=== PATIENT | female | born 1980 | race Caucasian/White ===

== ENCOUNTER 2019-06-19 20:22 | Inpatient (IN) | payer MEDICARE, OTHER ==
[~2019-06-19] VITALS: Ht 167.6 cm; Wt 103.9 kg
[~2019-06-19 20:22] MED LIST: COGENTIN1 MG/1 ML PO; DEPAKOTE500 MG PO; RISPERDAL1 MG PO
--- OUTSIDE RECORDS SUMMARY | 2019-06-19 20:25 | XMS REPORT | Encounter Summary ---
Author Author EMILY Pritchard, [place] Organization [facility] Address [address] [place] [id number] Phone Care Team Providers Care Management Accounts Manager Name Role Phone VICTOR MANUEL Vizcaino, Marianela Beckett [facility] [phone] Conditions or Problems No information available. Medications Medication Instructions Start Date Stop Date Generic Name ND Provider PROAIR HFA AERS take 2 puffs by mouth BID asthma for 60 days non kop ALBUTEROL SULFATE AERS [id number] Marianela Vizcaino NP Medications Administered No information available. Allergies, Adverse Reactions, Alerts No information available.
--- OUTSIDE RECORDS SUMMARY | 2019-06-19 20:25 | XMS REPORT | Encounter Summary ---
Author Author Kieran Whitfield [place] Shoaib Organization [facility] Address [address] [place] [phone] Phone Care Team Providers Care Ekg Monitor Name Role Phone VICTOR AMNUEL Vizcaino, Marianela Beckett [facility] [phone] Conditions or Problems No information available. Medications Medication Instructions Start Date Stop Date Generic Name [facility] Provider PROAIR HFA AERS take 2 puffs by mouth BID asthma for 60 days non kop ALBUTEROL SULFATE AERS [id number] Marianela Vizcaino NP Medications Administered No information available. Allergies, Adverse Reactions, Alerts No information available.
--- OUTSIDE RECORDS SUMMARY | 2019-06-19 20:25 | XMS REPORT | Encounter Summary ---
Author Author Gabriel, [email or web address] Organization [facility] Address [address] [place] [address] Phone Care Team Providers Care Cleaner Carpet And Upholstery Name Role Phone VICTOR MANUEL Vizcaino, Marianela Beckett [facility] [phone] Conditions or Problems No information available. Medications Medication Instructions Start Date Stop Date Generic Name NDC Provider PROAIR HFA AERS take 2 puffs by mouth BID asthma for 60 days non kop ALBUTEROL SULFATE AERS [phone] Marianela Vizcaino NP Medications Administered No information available. Allergies, Adverse Reactions, Alerts No information available.
--- OUTSIDE RECORDS SUMMARY | 2019-06-19 20:25 | XMS REPORT | Encounter Summary ---
Author Author EMILY To, [facility] Address [address] [place] [phone] Phone Care Team Providers Care Job Training Supervisor Name Role Phone VLADISLAV Mcdaniel, Alcira Guerra Unavailable Conditions or Problems No information available. Medications Medication Instructions Start Date Stop Date Generic Name [facility] Provider VENTOLIN HFA 108 (90 Base) MCG/ACT AERS Inhale 2 puffs by mouth twice daily x 60 days. NON KOP ( 8 gm) ALBUTEROL SULFATE [id number] VLADISLAV Epstein Medications Administered No information available. Allergies, Adverse Reactions, Alerts No information available.
--- OUTSIDE RECORDS SUMMARY | 2019-06-19 20:25 | XMS REPORT ---
Author Author [facility] Address Unknown Phone Unavailable Care Team Providers Care Inside Tester Name Role Phone UNKNOWN, REFFERING PP Unavailable Cesia OLVERA Unavailable Unavailable Problems This patient has no known problems. Allergies, Adverse Reactions, Alerts This patient has no known allergies or adverse reactions. Medications This patient has no known medications. Encounters Start Date/Time End Date/Time Encounter Type Admission Type Attending [facility] Care Department Encounter ID [id number] 00:00:00 2018-01-17 00:00:00 Outpatient [facility] [id number] 2018-01-01 10:44:59 2018-01-01 10:44:59 Outpatient [facility] [id number] 2016-11-16 00:00:00 2017-03-01 00:00:00 Outpatient [facility] [id number] 2016-11-16 00:00:00 2016-11-16 00:00:00 Outpatient [facility] [id number] 2016-10-28 20:13:00 2016-10-28 20:13:00 Emergency E [facility] [id number] 2016-10-05 00:01:00 2016-10-05 00:01:00 Outpatient C [facility] [id number] 2016-09-27 11:20:00 2016-09-27 11:20:00 Outpatient C [facility] [id number] 2016-09-05 22:11:00 2016-09-05 22:11:00 Emergency [facility] [id number] Results Test Description Test Time Test Comments Text Results Atomic Results Result Comments Complete Blood Count with Differential 2018-11-27 08:11:59 WBC (test code=WBC) 4.0 x10 4.4-10.5 RBC (test code=RBC) 4.58 x10 3.75-5.20 Hgb (test code=Hgb) 13.6 g/dL 12.2-14.8 MCV (test code=MCV) 91.50 fL 80.00-100.00 Hct (test code=Hct) 41.9 % 36.5-44.4 MCHC (test code=MCHC) 32.50 g/dL 32.00-37.50 RDW CV (test code=RDW CV) 12.2 % 11.5-14.5 MCH (test code=MCH) 29.7 pg 27.0-32.5 Platelets (test code=Platelets) 399.0 x10 140.0-440.0 MPV (test code=MPV) 8.6 fL Slide Review (test code=Slide Review) Auto Auto Result created by GL_SJM_SLIDE_REV_AUTO nRBC (test code=nRBC) 0 NRBC Abs (test code=NRBC Abs) 0.00 x10 IPF (test code=IPF) 0 % Automated [id number] 08:11:59* Test Item Value Reference Range Comments Neutro Auto (test code=Neutro Auto) 48.3 % 36.0-70.0 Lymph Auto (test code=Lymph Auto) 31.6 % 12.0-44.0 [place] Auto (test code=[place] Auto) 12.2 % 0.0-11.0 Eos, Auto (test code=Eos, Auto) 7.1 % 0.0-7.0 Basophil Auto (test code=Basophil Auto) 0.5 % 0.0-2.0 Neutro Absolute (test code=Neutro Absolute) 1.9 x10 1.6-7.4 Lymph Absolute (test code=Lymph Absolute) 1.25 x10 .50-4.60 [place] Absolute (test code=[place] Absolute) .48 x10 .00-1.20 Eos Absolute (test code=Eos Absolute) 0.28 x10 0.00-0.74 Baso Absolute (test code=Baso Absolute) 0.02 x10 0.00-0.21 IG [id number] 08:11:59* Test Item Value Reference Range Comments IG (test code=IG) 0.3 % 0.0-5.0 IG Abs (test code=IG Abs) 0 x10 Clozapine (Clozaril), Serum [id number] 07:14:43* Test Item Value Reference Range Comments Clozapine, Serum (test code=Clozapine, Serum) 260 ng/mL 350-650 This test was developed and its performance characteristicsdetermined by [facility]. It has not been cleared orapproved by the Food and Drug Administration. Norclozapine, Serum (test code=Norclozapine, Serum) 109 ng/mL Not Estab. This test was developed and its performance characteristicsdetermined by [facility]. It has not been cleared orapproved by the Food and Drug Administration. Total(Cloz+Norcloz) (test code=Total(Cloz+Norcloz)) 369 ng/mL Patients dosed with 400 mg clozapine daily for 4 weeks weremost likely to exhibit a therapeutic effect when the sum ofclozapine and norclozapine concentrations were at least 450ng/mL. Lissa C, Yvon P, Natali N, et al. [facility] Guidelines for Therapeutic Drug Monitoring inPsychiatry: Update 2011, Pharmacopsychiatry Jan 2011;44(6):195-235. Detection Limit=20Performed At: [facility] [id number] Sanjai MD Ph:[phone] Thyroid Stimulating [id number] 08:11:29* Test Item Value Reference Range Comments TSH (test code=TSH) 3.400 mIU/mL 0.270-4.200 Lipid [id number] 08:03:22* Test Item Value Reference Range Comments Cholesterol Total (test code=Cholesterol Total) 140 mg/dL 0-200 RISK OF HEART DISEASEPublished by [place] Heart Association Analyte Optimal Borderline Increased RiskCHOL <200 200-239 >240TRIG <150 150-199 >200HDL Male >60 <40HDL Female >60 <50LDL <100 130-159 >160LDL Near optimal is 100-129 Triglycerides (test code=Triglycerides) 66 mg/dL 9-200 HDL (test code=HDL) 42 mg/dL 50-60 LDL (test code=LDL) 85 mg/dL 0-130 The equation being used in this calculation is LDL=(Chol - HDL) - (Trig / 5) VLDL (test code=VLDL) 13 mg/dL 5-40 The equation being used in this calculation is VLDL=Trig / 5 Chol/HDL (test code=Chol/HDL) 3.3 ratio 0.0-4.4 LDL/HDL Ratio (test code=LDL/HDL Ratio) 2 The equation being used in this calculation is LDL/HDL Ratio=LDL Calc/HDL Chol RPR [id number] 01:14:52* Test Item Value Reference Range Comments RPR Qual (test code=RPR Qual) Non-Reactive Non-Reactive Reactive Control (test code=Reactive Control) Reactive Weak Reactive Control (test code=Weak Reactive Control) Weak Reactive Non-Reactive Control (test code=Non-Reactive Control) Non-Reactive Lot # (test code=Lot #) [id number] Expiration Dt (test code=Expiration Dt) 03-06-20 Urinalysis [id number] 15:25:13* Test Item Value Reference Range Comments UA WBC (test code=UA WBC) 6-10 0-5 UA RBC (test code=UA RBC) 6-10 0-5 UA Bacteria (test code=UA Bacteria) Profuse UA Squam Epithelial (test code=UA Squam Epithelial) 0-5 UA Mucous (test code=UA Mucous) Many Comprehensive Metabolic [id number] 15:21:14* Test Item Value Reference Range Comments Sodium Level (test code=Sodium Level) 137.0 mmol/L 135.0-145.0 Potassium Level (test code=Potassium Level) 4.5 mmol/L 3.5-5.1 Specimen hemolyzed. K+ results may be spuriously elevated. Recommend specimen recollection. Chloride Level (test code=Chloride Level) 104 mmol/L 98-105 CO2 (test code=CO2) 21 mmol/L 22-29 Anion Gap (test code=Anion Gap) 12 mmol/L 7-16 BUN (test code=BUN) 7.90 mg/dL 6.00-20.00 Creatinine Level (test code=Creatinine Level) 0.80 mg/dL 0.50-0.90 BUN/Creat Ratio (test code=BUN/Creat Ratio) 10 Glucose Level (test code=Glucose Level) 166 mg/dL 70-115 Calcium Level (test code=Calcium Level) 9.1 mg/dL 8.3-10.5 Alk Phos (test code=Alk Phos) 102 U/L 35-104 Bilirubin Total (test code=Bilirubin Total) 0.4 mg/dL 0.1-0.9 Albumin Level (test code=Albumin Level) 3.7 g/dL 3.5-5.2 Protein Total (test code=Protein Total) 7.2 g/dL 6.4-8.3 ALT (test code=ALT) 67 U/L 1-33 AST (test code=AST) 52 U/L 1-32 Specimen Hemolyzed. Globulin (test code=Globulin) 3.5 g/dL 2.9-3.1 A/G Ratio (test code=A/G Ratio) 1.1 ratio Comprehensive Metabolic [id number] 15:21:14* Test Item Value Reference Range Comments Sodium Level (test code=Sodium Level) 137.0 mmol/L 135.0-145.0 Potassium Level (test code=Potassium Level) 4.5 mmol/L 3.5-5.1 Specimen hemolyzed. K+ results may be spuriously elevated. Recommend specimen recollection. Chloride Level (test code=Chloride Level) 104 mmol/L 98-105 CO2 (test code=CO2) 21 mmol/L 22-29 Anion Gap (test code=Anion Gap) 12 mmol/L 7-16 BUN (test code=BUN) 7.90 mg/dL 6.00-20.00 Creatinine Level (test code=Creatinine Level) 0.80 mg/dL 0.50-0.90 BUN/Creat Ratio (test code=BUN/Creat Ratio) 10 Glucose Level (test code=Glucose Level) 166 mg/dL 70-115 Calcium Level (test code=Calcium Level) 9.1 mg/dL 8.3-10.5 Alk Phos (test code=Alk Phos) 102 U/L 35-104 Bilirubin Total (test code=Bilirubin Total) 0.4 mg/dL 0.1-0.9 Albumin Level (test code=Albumin Level) 3.7 g/dL 3.5-5.2 Protein Total (test code=Protein Total) 7.2 g/dL 6.4-8.3 ALT (test code=ALT) 67 U/L 1-33 AST (test code=AST) 52 U/L 1-32 Specimen Hemolyzed. Globulin (test code=Globulin) 3.5 g/dL 2.9-3.1 A/G Ratio (test code=A/G Ratio) 1.1 ratio eGFR AA (test code=eGFR AA) >60 mL/min/1.73 m2 eGFR (estimated Glomerular Filtration Rate) is an estimated value, calculated from the patient's serum creatinine using the MDRD equation. It is NOT the patient's actual GFR. The eGFR provides a more clinically useful measure of kidney disease than serum creatinine alone.This calculation takes sex and race into account, if the information is provided. If the race is not provided, and the patient is -[place], multiply by 1.212. If sex is not provided, and the patient is female, multiply by 0.742. Results for patients <18 years of age have not been validated by the MDRD study and should be interpreted with caution. eGFR Result Interpretation:eGFR > or=60 is in the Normal RangeeGFR < 60 may mean kidney diseaseeGFR < 15 may mean kidney failure Ranges recommended by the National Kidney Foundation, http://nkdep.nih.gov Alcohol [id number] 15:21:14* Test Item Value Reference Range Comments Ethanol Level (test code=Ethanol Level) <0.00 g/dL 0.00-0.01 Intoxicated 0.080 g/dL or more Ethanol Inst (test code=Ethanol Inst) <0 Comprehensive Metabolic [id number] 15:21:14* Test Item Value Reference Range Comments Sodium Level (test code=Sodium Level) 137.0 mmol/L 135.0-145.0 Potassium Level (test code=Potassium Level) 4.5 mmol/L 3.5-5.1 Specimen hemolyzed. K+ results may be spuriously elevated. Recommend specimen recollection. Chloride Level (test code=Chloride Level) 104 mmol/L 98-105 CO2 (test code=CO2) 21 mmol/L 22-29 Anion Gap (test code=Anion Gap) 12 mmol/L 7-16 BUN (test code=BUN) 7.90 mg/dL 6.00-20.00 Creatinine Level (test code=Creatinine Level) 0.80 mg/dL 0.50-0.90 BUN/Creat Ratio (test code=BUN/Creat Ratio) 10 Glucose Level (test code=Glucose Level) 166 mg/dL 70-115 Calcium Level (test code=Calcium Level) 9.1 mg/dL 8.3-10.5 Alk Phos (test code=Alk Phos) 102 U/L 35-104 Bilirubin Total (test code=Bilirubin Total) 0.4 mg/dL 0.1-0.9 Albumin Level (test code=Albumin Level) 3.7 g/dL 3.5-5.2 Protein Total (test code=Protein Total) 7.2 g/dL 6.4-8.3 ALT (test code=ALT) 67 U/L 1-33 AST (test code=AST) 52 U/L 1-32 Specimen Hemolyzed. Globulin (test code=Globulin) 3.5 g/dL 2.9-3.1 A/G Ratio (test code=A/G Ratio) 1.1 ratio eGFR AA (test code=eGFR AA) >60 mL/min/1.73 m2 eGFR (estimated Glomerular Filtration Rate) is an estimated value, calculated from the patient's serum creatinine using the MDRD equation. It is NOT the patient's actual GFR. The eGFR provides a more clinically useful measure of kidney disease than serum creatinine alone.This calculation takes sex and race into account, if the information is provided. If the race is not provided, and the patient is -[place], multiply by 1.212. If sex is not provided, and the patient is female, multiply by 0.742. Results for patients <18 years of age have not been validated by the MDRD study and should be interpreted with caution. eGFR Result Interpretation:eGFR > or=60 is in the Normal RangeeGFR < 60 may mean kidney diseaseeGFR < 15 may mean kidney failure Ranges recommended by the National Kidney Foundation, http://nkdep.nih.gov eGFR Non-AA (test code=eGFR Non-AA) >60.00 mL/min/1.73 m2 eGFR (estimated Glomerular Filtration Rate) is an estimated value, calculated from the patient's serum creatinine using the MDRD equation. It is NOT the patient's actual GFR. The eGFR provides a more clinically useful measure of kidney disease than serum creatinine alone.This calculation takes sex and race into account, if the information is provided. If the race is not provided, and the patient is -[place], multiply by 1.212. If sex is not provided, and the patient is female, multiply by 0.742. Results for patients <18 years of age have not been validated by the MDRD study and should be interpreted with caution. eGFR Result Interpretation:eGFR > or=60 is in the Normal RangeeGFR < 60 may mean kidney diseaseeGFR < 15 may mean kidney failure Ranges recommended by the National Kidney Foundation, http://nkdep.nih.gov Drugs of Abuse Urine [id number] 15:12:32* Test Item Value Reference Range Comments Amphetamine Screen Ur (test code=Amphetamine Screen Ur) Negative Negative For diagnostic purposes only. Positive results should always be assessed in conjunction with a patient's medical history. Barbiturate Screen Ur (test code=Barbiturate Screen Ur) Negative Negative Benzodiazepines Ur (test code=Benzodiazepines Ur) Negative Negative Cocaine Screen Ur (test code=Cocaine Screen Ur) Negative Negative U Methadone (test code=U Methadone) Negative Negative Opiate Screen Ur (test code=Opiate Screen Ur) Negative Negative U PCP Scrn (test code=U PCP Scrn) Negative Negative U Propoxyphene (test code=U Propoxyphene) Negative Negative Cannabinoid Screen Ur (test code=Cannabinoid Screen Ur) Negative Negative HCG Qualitative [id number] 14:55:34* Test Item Value Reference Range Comments hCG Ur (test code=hCG Ur) Negative If the result is "Negative" in patients suspected to be , recommend retest with a sample obtained 48 to 72 hours later, or by ordering a quantitative assay. If the result is "Borderline" gabrielle ting should be repeated in 48 to 72 hours. Lot # (test code=Lot #) [id number] Expiration Dt (test code=Expiration Dt) 02/04/2020 Neg Control (test code=Neg Control) Negative Pos Control (test code=Pos Control) Positive Internal QC (test code=Internal QC) Acceptable Urinalysis with Microscopic if [id number] 14:52:33* Test Item Value Reference Range Comments UA Color (test code=UA Color) YELLO Yellow UA Appear (test code=UA Appear) CLEAR Clear UA pH (test code=UA pH) 6 UA Spec Grav (test code=UA Spec Grav) 1.012 1.001-1.035 UA Glucose (test code=UA Glucose) NEG Negative UA Ketones (test code=UA Ketones) NEG Negative UA Blood (test code=UA Blood) NEG Negative UA Protein (test code=UA Protein) NEG Negative UA Bili (test code=UA Bili) NEG Negative UA Urobilinogen (test code=UA Urobilinogen) 0.2 mg/dL UA Nitrite (test code=UA Nitrite) POS Negative UA Leuk Est (test code=UA Leuk Est) NEG Negative UA Micro Ind? (test code=UA Micro Ind?) Indicated Not Indicated Result created by rule [email or web address]_UA_MICRO_IND Automated [id number] 14:46:06* Test Item Value Reference Range Comments Neutro Auto (test code=Neutro Auto) 48.5 % 36.0-70.0 Lymph Auto (test code=Lymph Auto) 32.1 % 12.0-44.0 [place] Auto (test code=[place] Auto) 10.2 % 0.0-11.0 Eos, Auto (test code=Eos, Auto) 8.1 % 0.0-7.0 Basophil Auto (test code=Basophil Auto) 0.8 % 0.0-2.0 Neutro Absolute (test code=Neutro Absolute) 1.9 x10 1.6-7.4 Lymph Absolute (test code=Lymph Absolute) 1.23 x10 .50-4.60 [place] Absolute (test code=[place] Absolute) .39 x10 .00-1.20 Eos Absolute (test code=Eos Absolute) 0.31 x10 0.00-0.74 Baso Absolute (test code=Baso Absolute) 0.03 x10 0.00-0.21 IG [id number] 14:46:06* Test Item Value Reference Range Comments IG (test code=IG) 0.3 % 0.0-5.0 IG Abs (test code=IG Abs) 0 x10 Complete Blood Count with [id number] 14:46:05* Test Item Value Reference Range Comments WBC (test code=WBC) 3.8 x10 4.4-10.5 RBC (test code=RBC) 4.52 x10 3.75-5.20 Hgb (test code=Hgb) 13.9 g/dL 12.2-14.8 MCV (test code=MCV) 92.70 fL 80.00-100.00 Hct (test code=Hct) 41.9 % 36.5-44.4 MCHC (test code=MCHC) 33.20 g/dL 32.00-37.50 RDW CV (test code=RDW CV) 12.1 % 11.5-14.5 MCH (test code=MCH) 30.8 pg 27.0-32.5 Platelets (test code=Platelets) 336.0 x10 140.0-440.0 MPV (test code=MPV) 9.7 fL Slide Review (test code=Slide Review) Auto Auto Result created by GL_SJM_SLIDE_REV_AUTO nRBC (test code=nRBC) 0 NRBC Abs (test code=NRBC Abs) 0.00 x10 IPF (test code=IPF) 0 % HIV [id number] 22:28:00* Test Item Value Reference Range Comments HIV 1/2 Antibody (test code=HIV1/2AB) Non-Reactive Non-Reactive HIV1/2 Antibody screen result indicates the absence of HIV1 and JHG8loyvuyobh.However, A Non- Reactive screen result does not rule out exposure orinfection. If an acute infection is suspected, HIV RNA Quantitative is recommended. P24 Antigen (test code=P24) Non-Reactive Non-Reactive P24 Ag screen result indicates the absence of P24 antigen, which is anindicator of HIV-1 acute infection.However, A Non-Reactive screen does not rule out exposure or infection.If acute HIV-1 is suspected, HIV RNA Quantitative is recommended. RPR, [id number] 02:26:00* Test Item Value Reference Range Comments RPR (test code=RPR) Non-Reactive Non-Reactive Thyroid Stimulating Hormone (TSH)2016-09-16 18:51:00* Test Item Value Reference Range Comments TSH (test code=TSH) 0.86 mIU/mL 0.270-4.200 BHCG, Serum, [id number] 18:33:00* Test Item Value Reference Range Comments Preg Qual [Se] (test code=BSHCG) Negative Negative [id number] 09:23:00* Test Item Value Reference Range Comments Amphetamine (test code=AMPH) Negative Negative For diagnostic purposes only, positive results should always be assessedin conjunctionwith the patient's medical history,clinical examination and otherfindings.To fulfill legal requirements, a more specific alternate chemical methodmust be used inorder to obtain a Confirmed analytical result. GC/MS is the preferred confirmatory method. Barbiturates (test code=VICTOR M) Negative Negative Benzodiazepine (test code=LISSETTE) Negative Negative Cocaine (test code=COCA) Negative Negative Methadone (test code=MTHD) Negative Negative Opiates (test code=OPIA) Negative Negative PCP (test code=PCP) Negative Negative Propoxyphene (test code=PROPOX) Negative Negative THC (test code=THC) POSITIVE Negative Alcohol, Urine (test code=ETOHU) <0.01 g/dL 0.00-0.01 Comprehensive Metabolic [id number] 09:22:00* Test Item Value Reference Range Comments Sodium (test code=NA) 135 mmol/L 135-145 Potassium (test code=K) 3.9 mmol/L 3.5-5.1 Chloride (test code=CL) 100 mmol/L 98-105 Carbon Dioxide (test code=CO2) 25 mmol/L 22-29 Glucose (test code=GLU) 89 mg/dL 70-115 Blood Urea Nitrogen (test code=BUN) 12 mg/dL 6-20 Creatinine (test code=CREAT) 0.7 mg/dL 0.5-0.9 Calcium (test code=CA) 9.4 mg/dL 8.3-10.5 Prot Total (test code=TP) 6.6 g/dL 6.4-8.3 Albumin (test code=ALB) 4.2 g/dL 3.5-5.2 A/G Ratio (test code=AGRATIO) 1.8 Ratio Globulin (test code=GLOB) 2.4 2.9-3.1 Bili Total (test code=TBIL) 0.7 mg/dL 0.1-0.9 Alk Phos (test code=APHOS) 60 U/L 35-104 AST (test code=AST) 25 U/L 1-32 ALT (test code=ALT) 18 U/L 1-33 BUN/Creatinine Ratio (test code=BCRATIO) 17.1 Anion Gap (test code=AGAP) 10 mmol/L 7-16 Estimated GFR (test code=GFR) >60 mL/min/1.73m2 eGFR (estimated Glomerular Filtration Rate) is an estimated value,calculated from the patient's serum creatinine using the MDRD equation.It is NOT the patient's actual GFR. The eGFR provides a more clinicallyuseful measure of kidney disease than serum creatinine alone.This calculation takes sex and race into account, if the informationis provided. If the race is not provided, and the patient isAfrican-[place], multiply by 1.212. If sex is not provided, and thepatient is female, multiply by 0.742. Results for patients <18 years ofage have not been validated by the MDRD study and should be interpretedwith caution.eGFR Result Interpretation:eGFR > or=60 is in the Normal RangeeGFR < 60 may mean kidney diseaseeGFR < 15 may mean kidney failureRanges recommended by the National Kidney Foundat ion,http://nkdep.nih.gov Urinalysis [id number] 09:09:00* Test Item Value Reference Range Comments Color (test code=COLOR) Yellow Yellow,Straw,Pl yellow Clarity (test code=CLAR) Clear Clear Specific [place] (test code=SPGR) 1.025 1.001-1.035 pH (test code=PH) 6.5 5.0-9.0 Ketone (test code=KET) 5 mg/dL Negative Glucose (test code=GLUCUR) Negative mg/dL Negative Protein (test code=PROT) 25 mg/dL Negative Bilirubin (test code=BILI) Negative mg/dL Negative Occult Blood (test code=UDOB) Trace Negative Urobilinogen (test code=UROB) 1.0 mg/dL 0.2-1.0 Nitrite (test code=NIT) Negative Negative Leuk Esterase (test code=LEUK) Moderate Negative Micros Exam (test code=MEXAM) Indicated Epithelial Cells (test code=EPI) 6-9 /LPF 0-30 WBC, Urine (test code=UWBC) 6-10 /HPF 0-5 RBC, Urine (test code=URBC) 0-3 /HPF 0-5 Bacteria (test code=BACT) Few /HPF CBC with [id number] 08:57:00* Test Item Value Reference Range Comments WBC (test code=WBC) 4.6 K/cumm 4.4-10.5 RBC (test code=RBC) 4.38 M/cumm 3.75-5.20 Hemoglobin (test code=HGB) 13.0 gm/dL 12.2-14.8 Hematocrit (test code=HCT) 40.1 % 36.5-44.4 MCV (test code=MCV) 91.7 fL 80-100 MCH (test code=MCH) 29.7 pg 27.0-32.5 MCHC (test code=MCHC) 32.4 g/dL 32.0-37.5 RDW (test code=RDW) 13.2 % 11.5-14.5 Platelet Count (test code=PLTCT) 372 K/cumm 140-440 MPV (test code=MPV) 7.3 fL Diff Method (test code=DIFFM) Auto Neutrophil (test code=NEUT) 62.5 % 36-70 Lymphocyte (test code=LYMPH) 27.8 % 12-44 Monocyte (test code=MONO) 6.2 % 0-11 Eosinophil (test code=EOS) 2.8 % 0-7 Basophil (test code=BASO) 0.7 % 0-2 Neutro Abs (test code=ANEUT) 2.8 K/cumm 1.6-7.4 Lymph Abs (test code=ALYMPH) 1.3 K/cumm 0.5-4.6 [place] Abs (test code=AMONO) 0.3 K/cumm 0.0-1.2 Eos Abs (test code=AEOS) 0.13 K/cumm 0.00-0.74 Baso Abs (test code=ABASO) 0.0 K/cumm 0.00-0.21
--- OUTSIDE RECORDS SUMMARY | 2019-06-19 20:25 | XMS REPORT | Encounter Summary ---
Author Author EMILY Booth, Melinda Organization [facility] Address [address] [place] [phone] Phone Care Team Providers Care Opticianry Teacher Name Role Phone VLADISLAV Mcdaniel, Alcira Guerra Unavailable Conditions or Problems No information available. Medications Medication Instructions Start Date Stop Date Generic Name [facility] Provider VENTOLIN HFA 108 (90 Base) MCG/ACT AERS Inhale 2 puffs by mouth twice daily x 60 days. NON KOP ( 8 gm) ALBUTEROL SULFATE [id number] VLADISLAV Epstein Medications Administered No information available. Allergies, Adverse Reactions, Alerts No information available.
--- OUTSIDE RECORDS SUMMARY | 2019-06-19 20:25 | XMS REPORT | Encounter Summary ---
Author Author ASHLEIGH Logan, [address] Organization [facility] Address [address] [place] [phone] Phone Care Team Providers Care Stock Sheets Cleaner Inspector Name Role Phone VLADISLAV Mcdaniel, Alcira Guerra Unavailable Conditions or Problems No information available. Medications Medication Instructions Start Date Stop Date Generic Name [facility] Provider VENTOLIN HFA 108 (90 Base) MCG/ACT AERS Inhale 2 puffs by mouth twice daily x 60 days. NON KOP ( 8 gm) ALBUTEROL SULFATE [id number] VLADISLAV Epstein Medications Administered No information available. Allergies, Adverse Reactions, Alerts No information available.
--- OUTSIDE RECORDS SUMMARY | 2019-06-19 20:25 | XMS REPORT | Encounter Summary ---
Author Author EMILY Hunter, Lisa Organization [facility] Address [address] [place] [phone] Phone Care Team Providers Care Hair Worker Name Role Phone VICTOR MANUEL Vizcaino, Marianela Beckett [facility] [phone] Conditions or Problems No information available. Medications Medication Instructions Start Date Stop Date Generic Name [facility] Provider PROAIR HFA AERS take 2 puffs by mouth BID asthma for 60 days non kop ALBUTEROL SULFATE AERS [id number] Marianela Vizcaino NP Medications Administered No information available. Allergies, Adverse Reactions, Alerts No information available.
--- OUTSIDE RECORDS SUMMARY | 2019-06-19 20:25 | XMS REPORT | Encounter Summary ---
Author Author Florentino, Ronadl Sandhu Organization [facility] Address [address] [place] [phone] Phone Care Team Providers Care Otr Owner Operator Truck Driver Name Role Phone VLADISLAV Mcdaniel, Alcira Guerra Unavailable Conditions or Problems No information available. Medications Medication Instructions Start Date Stop Date Generic Name [facility] Provider VENTOLIN HFA 108 (90 Base) MCG/ACT AERS Inhale 2 puffs by mouth twice daily x 60 days. NON KOP ( 8 gm) ALBUTEROL SULFATE [id number] VLADISLAV Epstein Medications Administered No information available. Allergies, Adverse Reactions, Alerts No information available.
--- NOTE | 2019-06-19 20:36 | NUR ---
pt placed in a gown, room empty and all items removed. Idania was placed with patient as a sitter. AOS notified of SI patient and need for a sitter.
[2019-06-19] MEDS ORDERED: SODIUM CHLORIDE 0.9% 1000ML 1,000 ML IV STA (21:30)
[2019-06-19 22:54] LABS: BASOPHILS % 0.2 % (0.0-1.0); EOSINOPHILS # (AUTO) 0.2 (0.0-0.4); EOSINOPHILS % 3.1 % (0.0-6.0); HEMATOCRIT 44.2 % (34.2-44.1); HEMOGLOBIN 14.8 g/dL (12.0-16.0); LYMPHOCYTES # (AUTO) 1.6 (1.0-3.2); LYMPHOCYTES % 31.7 % (18.0-39.1); MEAN CORPUSCULAR HEMOGLOBIN 29.9 pg (28-32); MEAN CORPUSCULAR HGB CONC 33.5 g/dL (31-35); MEAN CORPUSCULAR VOLUME 89.3 fL (81-99); MONOCYTES # (AUTO) 0.5 (0.2-0.8); MONOCYTES % 10.1 % (4.4-11.3); NEUTROPHILS # (AUTO) 2.8 (2.1-6.9); NEUTROPHILS % 54.7 % (38.7-80.0); PLATELET COUNT 327 x10e3/uL (140-360); RED BLOOD COUNT 4.95 x10e6/uL (3.6-5.1); RED CELL DISTRIBUTION WIDTH 12.5 % (11.7-14.4)
[2019-06-19 23:15] LABS: AMPHETAMINES SCREEN,URINE NEGATIVE (NEGATIVE); BENZODIAZEPINES SCREEN,URINE NEGATIVE (NEGATIVE); CLARITY,URINE CLOUDY (CLEAR); COLOR,URINE YELLOW (YELLOW); KETONES,URINE 1+ (NEGATIVE); LEUKOCYTE ESTERASE ,URINE TRACE (NEGATIVE); NITRITE,URINE POSITIVE (NEGATIVE); PHENCYCLIDINE SCREEN,URINE NEGATIVE (NEGATIVE); PROTEIN,URINE DIPSTICK 1+ (NEGATIVE)
[2019-06-19 23:16] LABS: BILIRUBIN,URINE 1+ (NEGATIVE); URINE UROBILINOGEN 1 mg/dL (0.2 - 1)
[2019-06-19 23:17] LABS: PREGNANCY TEST, URINE NEGATIVE (NEGATIVE)
[2019-06-19 23:34] LABS: BACTERIA,URINE MANY /HPF; EPITHELIAL CELLS,URINE FEW /LPF; WBC,URINE (MAN) >50 /HPF (0-5)
[2019-06-19] MEDS ORDERED: CEFTRIAXONE SOD 1 GM VIAL IM ONE (23:45)
[2019-06-19 23:47] LABS: ALANINE AMINOTRANSFERASE 40 IU/L (0-55); ALBUMIN 3.9 g/dL (3.5-5.0); ALKALINE PHOSPHATASE 85 IU/L (40-150); ANION GAP 23.2 mmol/L (8-16); BLOOD UREA NITROGEN 10 mg/dL (7-26); BUN/CREATININE RATIO 10 (6-25); CALCIUM 9.6 mg/dL (8.4-10.2); CARBON DIOXIDE 18 mmol/L (22-29); CHLORIDE 99 mmol/L (98-107); CREATINE KINASE 1737 IU/L (29-168); CREATININE, SERUM 1.01 mg/dL (0.57-1.11); EST GLOMERULAR FILTRATION RATE > 60 ML/MIN (60-); GLUCOSE 67 mg/dL (74-118); POTASSIUM 3.2 mmol/L (3.5-5.1); SODIUM 137 mmol/L (136-145)
--- NOTE | 2019-06-19 23:48 | Diagnostic Imaging Report ---
EXAMINATION: CHEST SINGLE (PORTABLE) INDICATION: Altered mental status COMPARISON: None FINDINGS: TUBES and LINES: None. LUNGS: Normal lung volumes. Lungs are clear. No consolidations. PLEURA: No pleural effusion or pneumothorax. HEART AND MEDIASTINUM: The cardiomediastinal silhouette is unremarkable. BONES AND SOFT TISSUES: No acute osseous lesion. Soft tissues are unremarkable. UPPER ABDOMEN: No free air under the diaphragm. IMPRESSION: No acute thoracic radiographic abnormality. Signed by: Vickey Albrecht DO on 06/19/2019 11:46 PM
[2019-06-19 23:55] LABS: ACETAMINOPHEN < 3 ug/mL (10-30); SALICYLATE < 5.0 mg/dL (0-30)
[2019-06-20] MEDS ORDERED: SODIUM CHLORIDE 0.9% 1000ML 1,000 ML IV ONE (00:15)
[2019-06-20] MEDS ORDERED: POTASSIUM CHLORIDE 20 MEQ TAB CR PO STA (00:17)
[2019-06-20] MEDS ORDERED: SODIUM CHLORIDE 0.9% 1000ML 1,000 ML IV SCH ×2 (00:52→13:30)
[2019-06-20] MEDS: CEFTRIAXONE SOD 1 GM/NS 50 ML 50 ML IV SCH (01:00)
[2019-06-20] MEDS ORDERED: ONDANSETRON HCL INJ 2MG/ML 2ML 2 MG/ML VIAL IV PRN ×2 (01:00→13:45)
--- NOTE | 2019-06-20 01:30 | NUR ---
PT REPORTS SI WITH PLAN; PT STATES, "I WOULD HURT MYSELF BY STABBING MYSELF IN THE NECK." PTS V/S/S; PLEASANT DEMEANOR; SITTER AT BS
--- NOTE | 2019-06-20 04:00 | NUR ---
pt continues to report SI, states, "I just want to from being hurt." Pt reports auditory hallucinations, stating, "There is a voice that wants to know why Isac did not wear shoes." Pts v/s/s; resp rate and effort are wnl, O2 sat ra 99%, skin warm, dry, color wnl for pt; sitter remains at bs
--- NOTE | 2019-06-20 06:40 | NUR ---
pt resting in room with eyes closed and no s/s distress noted; v/s/s
[2019-06-20 07:34] LABS: INR 1.05; PROTHROMBIN TIME 14.3 seconds (11.9-14.5)
[2019-06-20 07:35] LABS: PARTIAL THROMBOPLASTIN TIME 35.3 seconds (23.8-35.5)
[2019-06-20 07:53] LABS: CREATINE KINASE MB 5.7 ng/mL (0-5.0)
--- NOTE | 2019-06-20 08:37 | NUR ---
CALLED ED TO DETERMINE IF MAT TEAM WAS CALLED. WAS TOLD BEING RHABDO AND UTI SO BEING ADMITTED AND NEEDS MEDICAL CLEARANCE PRIOR TO THE MAT CALL.
[2019-06-20 12:04] VITALS: BP 118/67
[2019-06-20 12:23] VITALS: BP 118/67
[2019-06-20] MEDS ORDERED: TRAZODONE HCL50 MG PO (12:23)
[2019-06-20] MEDS ORDERED: LITHIUM CARBON300 M1 PO (12:23)
[2019-06-20] MEDS ORDERED: OLANZAPINE5 MG PO (12:23)
[2019-06-20] MEDS ORDERED: DIVALPROEX SOD250 MG PO (12:23)
[2019-06-20 12:34] VITALS: BP 118/67
--- NOTE | 2019-06-20 12:36 | NUR ---
RECEIVED PATIENT FROM ER TO ROOM 284, SHE IS IN STABLE CONDITION. ADMISSION HISTORY AND PHYSICAL ASSESSMENT COMPLETED AND DOCUMENTED. PATIENT ON SUICIDAL PRECAUTIONS, ALL ITEMS REMOVED FROM ROOM, SITTER AT BEDSIDE. PATIENT ORIENTED TO ROOM AND POLICIES. BED IN THE LOWEST POSITION.
[2019-06-20] MEDS ORDERED: ACETAMINOPHEN 325 MG TAB PO PRN (13:45)
[2019-06-20] MEDS: SODIUM CHLORIDE 0.9% 1000ML 1,000 ML IV SCH (14:00)
[2019-06-20] MEDS: METOPROLOL TARTRATE 50 MG TAB PO SCH ×2 (14:26→21:00)
[2019-06-20 15:42] VITALS: BP 113/60
[2019-06-20 15:46] LABS: CREATINE KINASE MB 4.2 ng/mL (0-5.0)
--- NOTE | 2019-06-20 16:34 | NUR ---
UNABLE TO FOLLOW UP FOR MAT TEAM CALL UNTIL MEDICALLY CLEARED. PT HAS 1 ON 1, AND PSYCH CONSULT WAS COMPLETED, WAITING ON MEDICAL CLEARANCE THEN NURSING CAN CALL MAT TEAM FOR PLACEMENT IF SI ARE NOT RESOLVED. SHE WILL NEED TO BE PLACED VIA MAT TEAM.
[2019-06-20] MEDS ORDERED: ENOXAPARIN SOD INJ 40 MG/0.4 ML SYR SC SCH (17:00)
--- NOTE | 2019-06-20 19:08 | NUR ---
REPORT GIVEN TO ONCOMING NURSE. PATIENT IS RESTING IN BED. NO ACUTE DISTRESS NOTED. 1:1 SITTER AT BEDSIDE. BED IN THE LOWEST POSITION.
[2019-06-20 20:00] VITALS: BP 123/60
--- NOTE | 2019-06-20 20:35 | History and Physical ---
CHIEF COMPLAINT: Visual and auditory hallucinations. HISTORY OF PRESENT ILLNESS: This is a 39-year-old female with known history of multiple psychiatric disorders. Of note, she reports to me has a history of schizophrenia, bipolar diagnosis when she was 14 years old, who currently is homeless, was in [facility] and walked here to [facility] for further evaluation and management. The patient apparently was in a personal jail, but she apparently lost her insurance. She reports about a month ago and when she lost her insurance, the personal jail decided to evict her from her home. Since that time, she ran out of all her psychiatric medications and has not taking any medications at all. What is listed is olanzapine and lithium as well as some other medications, but she does not know the names or the actual dose. During my evaluation, the patient reports that she does see some visual hallucinations on occasion and can hear things. She also reports having some suicidal ideations. Psychiatry has been consulted. Currently, there is a sitter at bedside as well. The patient is seen and evaluated at bedside on the medical floor. She is currently doing well with no other issues at this time. REVIEW OF SYSTEMS: Pertinent positives: Suicidal ideations, auditory and visual hallucinations. Pertinent negatives: Denies any chest pain, palpitation, nausea, vomiting, diarrhea, dysuria, hematuria, frequency, urgency, lightheadedness, dizziness, abdominal pain, headaches, shortness of breath, cough, congestion, fever, or any other complaints. The rest of 14-point review of systems are reviewed with the patient and are negative. ALLERGIES: NO KNOWN DRUG ALLERGIES. HOME MEDICATIONS: Unable to confirm, but we do note that she does take olanzapine, lithium and the other drugs we do not know at this time. PAST MEDICAL HISTORY: She has schizophrenia, bipolar as well as some other psychiatric disorders. PAST SURGICAL HISTORY: Reports none. FAMILY HISTORY: Hypertension and diabetes. SOCIAL HISTORY: No drugs. No alcohol. Does not smoke. She is homeless. Used to live in a personal jail. PHYSICAL EXAMINATION: VITAL SIGNS: Temperature is 97.6, pulse 88, respiratory rate 17, blood pressure is 118/67, and pulse ox 98% on room air. GENERAL: Not in acute distress. Alert and oriented x3. Cooperative on examination. HEENT: Head; normocephalic, atraumatic. Eyes; pupils are equal, round, and reactive to light bilaterally. Extraocular movements intact bilaterally. Throat; no evidence of erythema or exudates in the posterior pharynx. Has poor dentition. NECK: Supple. Good range of motion. PULMONARY: Clear to auscultation bilaterally. No wheezing, no rales, no rhonchi, no crackles appreciated. CARDIOVASCULAR: Positive S1 and S2. No murmurs, rubs, or gallops appreciated. ABDOMEN: Soft, nondistended, and nontender to palpation. Bowel sounds present. MUSCULOSKELETAL: Strength is 5/5 throughout. No evidence of any muscle deficits on examination. No weakness appreciated. NEUROLOGIC: Cranial nerves 2 through 12 grossly intact. PSYCHIATRIC: We will defer to psychiatry. SKIN: Intact. Warm to touch. Good cap refill. LABORATORY FINDINGS: Show white count is 5.1, hemoglobin 14.8, hematocrit is 44, and platelets of 327. Coagulation; PT 14. INR 1.05, and PTT 35. Chemistry; sodium 137, potassium 3.2, chloride 99, bicarb 18, anion gap of 23, BUN is 10, creatinine is 1, glucose 67, and calcium 9.6. Total bilirubin is 0.7, AST 85, ALT 40, and alkaline phosphatase 85. CK 1737 down to 982, CK-MB 12.6, then 5.7. Troponins are negative. Total protein 7.8 and albumin 3.9. Urinalysis concerning for underlying UTI. Urine drug screen positive for cannabinoids. Negative for salicylate. Negative for acetaminophen. Negative for ethyl alcohol. MICROBIOLOGY: Urine cultures are pending. IMAGING STUDIES: Chest x-ray shows no acute thoracic radiographic abnormalities. IMPRESSION: 1. Paranoid schizophrenia with concerns for suicide ideation. 2. Rhabdomyolysis, likely secondary to increased ambulation. 3. Urinary tract infection. 4. Hypokalemia. PLAN: At this time, we will have suicide precautions, have a sitter at bedside. I do not know the antipsychotics that she takes at home. We cannot confirm. She reports possibly lithium and possibly olanzapine, but we cannot confirm that at this time. I do need Psychiatry, which I will go ahead and consult to come and evaluate her to determine the drugs of choice for this particular patient. We will continue with the sitter at bedside and monitor closely. Replace potassium accordingly. Continue with IV fluids at 100 mL/h due to the rhabdomyolysis. I will go ahead and get a lower extremity venous Doppler as her left leg looks more swollen than her right leg. I will put on Lovenox for DVT prophylaxis. Get a.m. labs. Continue with IV antibiotics for possible UTI. Monitor urine cultures. Otherwise discussed plan of care with the patient at bedside with nursing staff present throughout the entire conversation. MD SIENNA Wallis/TALON /[id number]
[2019-06-20 21:00] VITALS: BP 123/60
[2019-06-21] VITALS (7 sets, daily range): BP systolic 107–131; BP diastolic 61–87
[2019-06-21] MEDS: SODIUM CHLORIDE 0.9% 1000ML 1,000 ML IV SCH ×2 (00:30→20:30)
[2019-06-21] MEDS: CEFTRIAXONE SOD 1 GM/NS 50 ML 50 ML IV SCH (01:32)
[2019-06-21 05:53] LABS: ALANINE AMINOTRANSFERASE 25 IU/L (0-55); ALBUMIN 2.8 g/dL (3.5-5.0); ALKALINE PHOSPHATASE 56 IU/L (40-150); ANION GAP 13.6 mmol/L (8-16); BASOPHILS % 0.3 % (0.0-1.0); BLOOD UREA NITROGEN 7 mg/dL (7-26); BUN/CREATININE RATIO 10 (6-25); CALCIUM 8.2 mg/dL (8.4-10.2); CARBON DIOXIDE 23 mmol/L (22-29); CHLORIDE 108 mmol/L (98-107); EOSINOPHILS # (AUTO) 0.3 (0.0-0.4); EOSINOPHILS % 7.6 % (0.0-6.0); EST GLOMERULAR FILTRATION RATE > 60 ML/MIN (60-); GLUCOSE 89 mg/dL (74-118); HEMATOCRIT 35.5 % (34.2-44.1); HEMOGLOBIN 11.5 g/dL (12.0-16.0); LYMPHOCYTES % 52.1 % (18.0-39.1); MEAN CORPUSCULAR HEMOGLOBIN 30.1 pg (28-32); MEAN CORPUSCULAR HGB CONC 32.4 g/dL (31-35); MEAN CORPUSCULAR VOLUME 92.9 fL (81-99); MONOCYTES # (AUTO) 0.4 (0.2-0.8); MONOCYTES % 9.7 % (4.4-11.3); NEUTROPHILS # (AUTO) 1.2 (2.1-6.9); PLATELET COUNT 230 x10e3/uL (140-360); POTASSIUM 3.6 mmol/L (3.5-5.1); RED BLOOD COUNT 3.82 x10e6/uL (3.6-5.1); RED CELL DISTRIBUTION WIDTH 12.5 % (11.7-14.4); SODIUM 141 mmol/L (136-145)
[2019-06-21 06:22] LABS: ANION GAP 13.9 mmol/L (8-16); BLOOD UREA NITROGEN 7 mg/dL (7-26); BUN/CREATININE RATIO 10 (6-25); CALCIUM 8.1 mg/dL (8.4-10.2); CARBON DIOXIDE 23 mmol/L (22-29); CHLORIDE 108 mmol/L (98-107); CREATINE KINASE 553 IU/L (29-168); CREATININE, SERUM 0.68 mg/dL (0.57-1.11); EST GLOMERULAR FILTRATION RATE > 60 ML/MIN (60-); GLUCOSE 85 mg/dL (74-118); POTASSIUM 3.9 mmol/L (3.5-5.1); SODIUM 141 mmol/L (136-145)
--- NOTE | 2019-06-21 06:45 | NUR ---
Patient resting comfortably. Bedside shift report given to oncoming nurse regarding patient's status.
--- NOTE | 2019-06-21 07:30 | NUR ---
recd pt up in shower ,1:1 sitter with pt ,denies pain ,nodistress ntoed.
[2019-06-21] MEDS: METOPROLOL TARTRATE 50 MG TAB PO SCH ×2 (08:30→21:00)
--- NOTE | 2019-06-21 12:00 | NUR ---
PT UP IN BED DENIES PAIN,EDWINA QUIET,1:1 SITTER AT BEDSIDE
[2019-06-21] MEDS ORDERED: QUETIAPINE FUMARATE 25 MG TAB PO PRN (15:30)
--- NOTE | 2019-06-21 15:35 | NUR ---
spoke with dr sherrie LOOMIS stated pt voluntarly wants to go to psych facility,stated [facility] would accept.
--- NOTE | 2019-06-21 19:15 | NUR ---
Patient received lying in bed. AAO x 3. Sitter at bedside. Patient had no complaints of pain. Respirations even and non-labored. IVF infusing at 100cc/hr. Fall/suicidal precautions in place. Patient instructed to call for assistance when needed. Call light within reach.
[2019-06-21] MEDS: DOCUSATE SODIUM 100 MG CAP PO SCH (20:54)
[2019-06-21] MEDS ORDERED: QUETIAPINE FUMARATE 25 MG TAB PO SCH (21:00)
--- NOTE | 2019-06-21 21:25 | Consultation ---
DATE OF CONSULTATION: 06/21/2019 Psychiatric Consultation REASON FOR CONSULTATION: To evaluate the patient's psychosis and mood. HISTORY OF PRESENT ILLNESS: The patient is a 39-year-old female, admitted to the hospital for auditory hallucinations, major depression, and rhabdo. Psychiatric consultation is called to evaluate the patient's psychosis and mood. As per the medical records, the patient has recently been evicted from personal nursing home. She claims she walked [facility] to [facility] for evaluation. She is currently being treated for UTI and hyperkalemia and rhabdo. Upon evaluation today, the patient is found to be in the room with sitters. The patient is alert, awake, and oriented to situation. She claims she has been feeling depressed and anxious due to her homelessness state. She admits to suicidal ideation with plan to cut herself with a knife. She denies any homicidal ideation. She admits to hallucination, auditory and visual, and is currently active, only having hallucination. She denies any issue with sleep and appetite. She is not paranoid or delusional. The patient claims that she has history of bipolar and schizophrenia and taking Seroquel and Depakote in the past. The patient is willing to go to a psychiatric hospital. PAST PSYCHIATRIC HISTORY: The patient reports past psychiatric history of schizophrenia and bipolar. She denies past suicide attempts. She denies alcohol or drug use. FAMILY HISTORY: Denies. SOCIAL HISTORY: The patient is homeless. MENTAL STATUS EXAM: The patient is middle-aged female. She is calm, cooperative. Mood is depressed and anxious. Affect is blunt. Psychomotor state is passive. She admits to suicidal ideation with plan to kill herself. Denies any homicidal ideation. Admits to auditory and visual hallucination. Thought process is concrete. No delusion elicited. Insight and judgment are fair. Memory appears to be grossly intact. CURRENT MEDICATIONS: 1. Metoprolol. 2. Seroquel. 3. Lovenox. 4. Sodium chloride. 5. Acetaminophen. 6. Ondansetron. CURRENT LABORATORY DATA: WBC 3.82, RBC 3.82, hemoglobin 11.5, hematocrit 35.5, platelets 230. Sodium 141, potassium 3.9, chloride 108, CO2 of 23, BUN 7, and creatinine is 0.68. AST 35, ALT 25. ASSESSMENT: 1. Schizoaffective disorder, bipolar type. 2. Cannabinoids abuse. PLAN: 1. Seroquel 50 mg p.o. at bedtime. 2. Seroquel 25 mg p.o. q.6 hours p.r.n. 3. Supportive therapy. 4. Recommend total abstinence from alcohol and drugs. 5. Transfer to Inpatient Psychiatry once the patient is medically cleared. 6. Discussed with nursing staff. Thank you for this consultation. Dictated by Josee Persaud PA-C Scout Mary MD QTV/MODL /[id number]
[2019-06-22] VITALS: BP 124/71
[2019-06-22] MEDS: CEFTRIAXONE SOD 1 GM/NS 50 ML 50 ML IV SCH (01:00)
[2019-06-22 04:00] VITALS: BP 129/68
--- NOTE | 2019-06-22 07:00 | NUR ---
Walking rounds done. Patient resting comfortably. Bed-side shift report given to oncoming nurse.
[2019-06-22 08:00] VITALS: BP 137/80
[2019-06-22 08:16] VITALS: BP 137/80
[2019-06-22] MEDS: METOPROLOL TARTRATE 50 MG TAB PO SCH (09:11)
[2019-06-22] MEDS: DOCUSATE SODIUM 100 MG CAP PO SCH (09:11)
--- NOTE | 2019-06-22 09:45 | NUR ---
Patient resting in bed, tolerated breakfast, denies any pain, no distress noted, sitter at bed side,monitoring closely.
--- NOTE | 2019-06-22 10:44 | NUR ---
CM RECEIVED REQUEST FOR INPT PSYCH. PT IS GOING [facility]ILY[phone] SPOKE W [place]. BED AVAILABLE. MET W THE PT TO PROVIDE CHOICE. [facility] AND HAD BEEN THERE BEFORE. CHOICE LETTER SIGNED AND MOT INITIATED. DISCUSSED W JUANITO CH. WILL UPDATE WHEN BED READY.
[2019-06-22 12:00] VITALS: BP 139/83
[2019-06-22 16:00] VITALS: BP 141/75
--- NOTE | 2019-06-22 16:58 | NUR ---
Patient discharged to [facility] , Report called to Joanne SOLOMON, Patient not in any distress, denies any pain, sitter at bed side, prescription and Transfer MAR signed by Dr Lisette nicole in packet handed over to EMS. EMS here to pick the patient
--- NOTE | 2019-06-23 00:39 | Discharge Summary ---
FINAL DISCHARGE DIAGNOSES: 1. Schizoaffective disorder, bipolar type. 2. History of cannabinoid abuse. 3. Rhabdomyolysis. 4. Urinary tract infection. 5. Hypokalemia, resolved. CONSULTANTS: Psychiatry. VITAL SIGNS: Temperature is 98, pulse 71, respirations 18, blood pressure 139/83, pulse ox 97% on room air. LABORATORY FINDINGS: Show white count was 5.1, hemoglobin 11.1, hematocrit 35, platelets of 230. Coagulation; PT 14, INR 1.05, PTT 35. Chemistry; sodium 141, potassium 3.9, chloride 108, bicarb 23, anion gap of 13, BUN 7, creatinine 0.68, glucose 85, calcium 8.1. LFTs; total bilirubin 0.3, AST 35, ALT 25, alkaline phosphatase 86. CK on admission was 1737, downtrended to 251 on discharge. Total protein 5.5, albumin 2.8. Urinalysis consistent with UTI. Urine drug screen positive for cannabinoids. Negative salicylate. Negative acetaminophen. Negative ethyl alcohol. MICROBIOLOGY: Urine cultures were found to be E coli pansensitive. IMAGING STUDIES: Chest x-ray was found to be negative. Lower extremity venous Doppler was found to be negative for any DVT. HOSPITAL COURSE: A 39-year-old female with known history of multiple psychiatric disorders of underlying schizophrenia, apparently was recently discharged from a care facility due to unknown reasons, apparently has been homeless for the last one month, came into [facility] with suicidal ideation and hallucinations with visual and auditory hallucinations. The patient was admitted, found to have rhabdomyolysis, was on IV fluids. The patient's CK was elevated on admission with downtrended to normal prior to being discharged to inpatient psychiatry unit. The patient was found to have a urinary tract infection, treated accordingly with IV antibiotics and oral Omnicef on discharge. For her underlying psychiatric disorders, Psychiatry was consulted, felt the patient has schizoaffective disorder with bipolar type. The patient was started on oral Seroquel and recommended inpatient psychiatric unit. The patient was then discharged on 06/22/2019 to an inpatient psychiatric facility. The patient was cleared from Psychiatry for transfer. Medically, the patient is cleared as well. She will continue with oral antibiotics at the inpatient psychiatric unit. On discharge, the patient was doing well back to normal baseline with no other issues. On the day of discharge, vital signs were stable, labs reviewed and stable. The patient was seen, evaluated, and examined thoroughly on the day of discharge with no other complaints. The patient verbalized understanding and agreed to plan of care for followup as an outpatient with primary care physician in 1 week and she will be going to the inpatient psychiatric unit for further evaluation and management. MEDICATIONS: See med reconciliation form. DISPOSITION: To inpatient psychiatric unit. CONDITION: Stable. DIET: Heart healthy. In the event of any worsening symptoms, the patient was advised to come back to the ED for further evaluation. Discharge summary took greater than 35 minutes. MD SIENNA Wallis/TALON /[id number]
== END 2019-06-22 16:54 | DRG 885 ==
LOC: FSED 20:22 → ERHOLD 06-20 00:54 → MED/SURG3 06-20 11:51
PROVIDERS: ADMIT Internal Medicine; ATTEND Internal Medicine
DX: F25.0 Schizoaffective disorder, bipolar type (principal); M62.82 Rhabdomyolysis; N39.0 Urinary tract infection, site not specified; R45.851 Suicidal ideations; B96.20 Unspecified Escherichia coli [E. coli] as the cause of diseases classified elsewhere; E87.6 Hypokalemia; E16.2 Hypoglycemia, unspecified; F12.10 Cannabis abuse, uncomplicated; Z59.0 Homelessness
CPT/HCPCS: 36415; 71045; 80048; 80053; 80307; 80320; 80329; 81001; 81003; 81025; 82550; 82553; 84484; 85025; 85610; 85730; 87086; 87186; 93005; 93970; 99284; J0696; J1650; J2405; J7030